=== PATIENT | male | born 1995 | race Caucasian/White ===

== ENCOUNTER 2023-12-16 16:51 | Emergency (ER) | payer MEDICAID ==
[~2023-12-16] VITALS: Ht 167.6 cm; Wt 75.7 kg
[2023-12-16 16:55] VITALS: BP_SYST 120; PULSE 103; RESP 18; TEMP 97.2; O2SAT 97
[2023-12-16 17:00] VITALS: BP_SYST 122; PULSE 78; RESP 18; TEMP 98.2; O2SAT 98
[2023-12-16] MEDS ORDERED: IBUP-1969 PO (17:37)
[2023-12-16 17:55] VITALS: BP_SYST 122; PULSE 78; RESP 18; TEMP 98.2; O2SAT 98
== END 2023-12-16 17:55 | disposition home or self-care (01) ==
LOC: SED 16:51
DX: S62.366A Nondisplaced fracture of neck of fifth metacarpal bone, right hand, initial encounter for closed fracture (principal); Z79.899 Other long term (current) drug therapy; W22.09XA Striking against other stationary object, initial encounter; Y93.89 Activity, other specified; Y92.89 Other specified places as the place of occurrence of the external cause; Y99.8 Other external cause status
CPT/HCPCS: 99283